=== PATIENT | male | born 1995 | race Two or more races ===

== ENCOUNTER 2020-12-18 07:36 | Emergency (ER) | payer MEDICAID ==
[~2020-12-18] VITALS: Ht 172.7 cm; Wt 72.7 kg
[2020-12-18] MEDS ORDERED: IBUPROFEN 600 MG TABLET PO ONE (09:45)
[2020-12-18] MEDS ORDERED: ACETAMINOPHEN 500 MG TABLET PO ONE (09:45)
[2020-12-18 10:18] LABS: COVID AG,FIA SOURCE NASAL SWAB
[2020-12-18 10:52] LABS: RAPID GROUP A STREP NEGATIVE (NEGATIVE)
[2020-12-18 11:01] VITALS: BP 121/80
== END 2020-12-18 11:30 | disposition home or self-care (01) ==
LOC: EMS 07:40
DX: U07.1 COVID-19 (principal); J06.9 Acute upper respiratory infection, unspecified; F17.210 Nicotine dependence, cigarettes, uncomplicated
CPT/HCPCS: 87430; 99283; 99406

== ENCOUNTER 2023-07-30 21:04 | Emergency (ER) | payer MEDICAID ==
[~2023-07-30] VITALS: Ht 175.3 cm; Wt 61.0 kg
[2023-07-30 21:10] VITALS: TEMP 98.2
[2023-07-31] MEDS: IBUPROFEN 600 MG TABLET PO ONE (00:31)
[2023-07-31] MEDS: ACETAMINOPHEN/CODEINE 300-30 MG TABLET PO ONE (00:31)
[2023-07-31] MEDS: BACITRACIN 0.9 GM PACKET OINTMENT TP ONE (00:31)
[2023-07-31] MEDS ORDERED: BACI28.410 TP (00:43)
[2023-07-31] MEDS ORDERED: IBUP-1554 PO (00:43)
[2023-07-31] MEDS ORDERED: ACET-2080 PO (00:43)
[2023-07-31 00:52] VITALS: BP 134/82; PULSE 75; RESP 15
== END 2023-07-31 00:54 | disposition home or self-care (01) ==
LOC: EMS 21:06
DX: S83.92XA Sprain of unspecified site of left knee, initial encounter (principal); S70.02XA Contusion of left hip, initial encounter; F17.210 Nicotine dependence, cigarettes, uncomplicated; V29.888A Rider (driver) (passenger) of other motorcycle injured in other specified transport accidents, initial encounter; Y93.89 Activity, other specified; Y92.89 Other specified places as the place of occurrence of the external cause; Y99.8 Other external cause status
CPT/HCPCS: 73503; 99284